=== PATIENT | female | born 2005 | race Two or more races ===

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

== ENCOUNTER 2025-02-22 21:04 | Emergency (ER) | payer MEDICAID, SELFPAY ==
[2025-02-22 21:07] VITALS: BMI 22.3
--- NOTE | 2025-02-22 21:08 | EKG_ITS ---
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 Requested By: ED Temporary Provider Order Number: [id number] Reading MD: ED Temporary Provider Measurements Intervals Webber Rate: 124 P: 59 VT: 142 QRS: 3 QRSD: 107 T: 1 QT: 336 QTc: 484 Interpretive Statements SINUS TACHYCARDIA S1-S2-S3 PATTERN, CONSISTENT WITH PULMONARY DISEASE, RVH, OR NORMAL VARIANT INCOMPLETE RIGHT BUNDLE BRANCH BLOCK [90+ ms QRS DURATION, TERMINAL R IN V1/V2, 40+ ms S IN I/aVL/V4/V5/V6] ST DEVIATION AND MODERATE T-WAVE ABNORMALITY, CONSIDER ANTEROLATERAL ISCHEMIA [-0.1+ mV T-WAVE IN V3-V6] No previous ECG available for comparison /store/S0/[id number].pdf
[2025-02-22 21:22] VITALS: BP 137/91; PULSE 127; RESP 20; TEMP 37.2; O2SAT 98
--- NOTE | 2025-02-22 21:29 | XR_ITS ---
EXAMINATION: PA lateral chest 2 views TECHNIQUE: Upright PA lateral chest 2 views Date and time: February 22, 2025, 2150 hours INDICATIONS: Chest pain and abdominal pain today. FINDINGS: Normal heart size No lobar pneumonia or pulmonary edema The osseous structures are intact IMPRESSION: No pneumonia or pulmonary edema
--- NOTE | 2025-02-22 21:32 | PD.EDRME ---
Rapid Medical Screening Exam RME Arrival date/time: 02/22/25 21:04 19-year-old female with a history of ANCA associated vasculitis micro type just recently received the Truxima injection today and reports with c/o chest and abd pain Chief Complaint: Chest Pain Time Seen by Provider: 02/22/25 21:18 Vital signs: Vital Signs Temperature 98.9 F 02/22/25 21:22 Pulse Rate 127 H 02/22/25 21:22 Respiratory Rate 20 02/22/25 21:22 Blood Pressure 137/91 H 02/22/25 21:22 Pulse Oximetry (%) 98 02/22/25 21:22 Oxygen Delivery Method Room Air 02/22/25 21:22 Exam: - Clinical Impression: -
[2025-02-22 21:56] LABS: Basophils # (Auto) 0.0 Thou/mm3 (0.0-0.2); Basophils % (Auto) 0 % (0-2.5); Eosinophils # (Auto) 0.0 Thou/mm3 (0.0-0.5); Eosinophils % (Auto) 0 % (0-10); Hematocrit 34.4 % (36.0-46.0); Hemoglobin 11.0 g/dL (12.0-16.0); Immature Granulocytes Auto 0.06 Thou/mm3 (0.00-0.00); Lymphocytes # (Auto) 0.5 Thou/mm3 (1.0-5.0); Lymphocytes % (Auto) 6 % (10-50); Mean Corpuscular HGB Conc 32.0 g/dl (31.0-37.0); Mean Corpuscular Hemoglobin 26.5 pg (25.0-35.0); Mean Corpuscular Volume 83 fL (80-100); Monocytes # (Auto) 0.1 Thou/mm3 (0.0-0.8); Monocytes % (Auto) 1 % (0-12); Neutrophils # (Auto) 6.9 Thou/mm3 (1.8-7.7); Neutrophils % (Auto) 92 % (37-80); Nucleated Red Blood Cell # 0.00 Thou/mm3 (0.00-0.00); Nucleated Red Blood Cell % 0 /100 WBC (0); Platelet Count 344 Thou/mm3 (140-440); RDW Standard Deviation 42.3 fL (36.4-46.3); Red Blood Count 4.15 Miln/mm3 (4.00-5.20); White Blood Count 7.5 Thou/mm3 (4.5-11.0)
[2025-02-22 22:10] LABS: HCG,Qualitative Serum Negative
[2025-02-22 22:23] LABS: Alanine Aminotransferase 8 U/L (10-49); Albumin, Serum 5.3 gm/dL (3.5-5.0); Albumin/Globulin Ratio 1.8 (1.2-2.2); Alkaline Phosphatase 100 U/L (46-116); Anion Gap 11 (7-16); Aspartate Amino Transferase 15 U/L (0-34); BUN/Creatinine Ratio 10 Ratio (12-20); Bilirubin,Total 0.3 mg/dL (0.3-1.2); Blood Urea Nitrogen 7 mg/dL (9-23); Calcium 9.6 mg/dL (8.3-10.6); Calcium (Corrected) 9.6 mg/dL (8.5-10.1); Carbon Dioxide 24.2 mMol/L (20.0-31.0); Chloride 105 mMol/L (98-107); Creatinine (Component) 0.7 mg/dL (0.6-1.3); Estimated Creatinine Clearance 111.6 mL/min (>60); Globulin 2.9 gm/dL (2.3-3.5); Glucose 201 mg/dL (74-106); Osmolality,Calculated 283 (275-295); Potassium 3.8 mMol/L (3.4-5.1); Sodium 140 mMol/L (136-145); Total Protein 8.2 gm/dL (5.7-8.2); Troponin I < 0.002 ng/mL (0.0-0.045); eGFR > 60 See Note
[2025-02-22 22:54] VITALS: BP 121/77; PULSE 107; RESP 19; TEMP 36.8; O2SAT 100
[2025-02-23] MEDS: SODIUM CHLORIDE 0.9% 1000 ML 1,000 ML 999 ML IV (00:21)
[2025-02-23 02:40] LABS: D-Dimer < 250 ng/mL (<600)
[2025-02-23] MEDS: MG HYD/AL HYD/SIME (Maalox Reg) SUSP 30 ML UDC PO (04:39)
[2025-02-23] MEDS: LIDOCAINE VISCOUS 2% 15 ML UDC PO (04:39)
[2025-02-23 04:42] VITALS: BP 126/84; PULSE 96; RESP 18; TEMP 36.6; O2SAT 99
--- NOTE | 2025-02-23 04:49 | PD.EDADULT ---
ED General RME/HPI General Chief complaint: Chest Pain Stated complaint: CHEST PAIN Time Seen by Provider: 02/22/25 21:18 Arrival date/time: 02/22/25 21:04 RME / HPI RME / HPI narrative: 02/22/25 21:04 19-year-old female with a history of ANCA associated vasculitis micro type just recently received the Truxima injection today and reports with c/o chest and abd pain Exam: - Impression: - Related Data Home Medications ?Medication ?Instructions ?Recorded ?Confirmed fluoxetine 10 mg capsule (Prozac) 10 mg PO QAM #0 caps 12/31/13 07/16/18 clonidine HCl 0.1 mg tablet 0.1 mg PO QPM #0 tabs 04/22/15 07/16/18 methylphenidate HCl 18 mg 27 mg PO QAM #0 tabs 04/22/15 07/16/18 tablet,extended release 24 hr (Concerta) Previous Rx's ?Medication ?Instructions ?Recorded Flagyl 250 mg tablet 250 mg PO TID #20 tabs 07/16/18 (metronidazole) peg 3350-electrolytes 236 240 ml PO Q10M #4,000 mL 07/06/22 gram-22.74 gram-6.74 gram-5.86 gram solution (Golytely) Allergies Allergy/AdvReac Type Severity Reaction Status Date / Time lactose Allergy Intermediate Abdominal Verified 02/22/25 21:05 Pain Course Orders Category Date Time Status EKG (ED ONLY) *Do not use* NOW Care 02/22/25 21:08 Completed EKG (ED Only) Stat Exams 02/22/25 21:08 Draft XR chest 2V Stat Exams 02/22/25 21:29 Completed CBC Stat Lab 02/22/25 21:34 Completed CMP [Comprehensive Metabolic Panel] Stat Lab 02/22/25 21:34 Completed D-Dimer Stat Lab 02/23/25 01:52 Completed HCG,Qualitative Serum Stat Lab 02/22/25 21:34 Completed Troponin I Stat Lab 02/22/25 21:34 Completed Lidocaine 2% Viscous [Xylocaine 2% Viscous] Med 02/23/25 03:30 Discontinued 15 ml PO X1 ONE Sodium Chloride 0.9% 1000 ml [Ns] 1,000 ml Med 02/23/25 00:09 Discontinued IV 999 mls/hr mg Hyd/Al Hyd/Cathy Susp [Maalox Susp] Med 02/23/25 03:29 Discontinued 30 ml PO X1 ONE Vital Signs Vital signs: Vital Signs Temperature 98.9 F 02/22/25 21:22 Pulse Rate 127 H 02/22/25 21:22 Respiratory Rate 20 02/22/25 21:22 Blood Pressure 137/91 H 02/22/25 21:22 Pulse Oximetry (%) 98 02/22/25 21:22 Oxygen Delivery Method Room Air 02/22/25 21:22 Discharge Plan Plan Patient Disposition: HOME (Self Care) Patient condition on transfer: Stable Prescriptions/Referrals Prescriptions/Med Rec: No Action fluoxetine [Prozac] 10 MG capsule 10 mg PO QAM Qty: 0 clonidine HCl 0.1 MG tablet 0.1 mg PO QPM Qty: 0 Patient Comments: 1 TO 2 TABS AT NIGHT methylphenidate HCl [Concerta] 18 MG/BOTTLE tablet extended release 24 hr 27 mg PO QAM Qty: 0 metronidazole [Flagyl] 250 mg tablet 250 mg PO TID Qty: 20 0RF peg 3350-electrolytes [Golytely] 236-22.74-6.74 -5.86 gram recon soln 240 ml PO Q10M Qty: 4000 0RF Rx Instructions: until fecal effluent is clear Referrals: Mckenna Gurrola FNP [Primary Care Provider] - In 1 week Problem List Clinical Impression: Atypical chest pain Patient/Caregiver Discharge Instructions Education Materials: ED Chest Pain, Uncertain Cause Additional Instructions: Your heart rate has improved since you have been in the emergency department. Please talk to your primary care physician and let them know that you are here however I think it safe you to go home. Your white count was normal and otherwise your electrolytes are reassuring. Your D-dimer is negative and I do not feel that you have a pulmonary embolism. Your cardiac enzymes are also negative. Please return to the emergency department for any worsening symptoms, or any other concerns. Print Language: Argentine Stand Alone Forms: Alicia Award Info., Patient Portal Info Letter MDM Medication Administration(s) Medication Administration History Discontinued Medications Al Hydrox/Mg Hydrox/Simethicone (Mg Hyd/Al Hyd/Cathy (Maalox Reg) Susp 30 Ml Udc) 30 ml PO X1 ONE Stop: 02/23/25 03:30 Last Admin: 02/23/25 04:39 Dose: 30 ml Documented By: EE Sodium Chloride (Ns) 1,000 mls @ 999 mls/hr IV .Q1H1M ONE Stop: 02/23/25 01:09 Last Infusion: 02/23/25 01:53 Dose: Infused Documented By: Admin: 02/23/25 00:21 Dose: 999 mls/hr Documented By: MICKEY Lidocaine HCl (Lidocaine Viscous 2% 15 Ml Udc) 15 ml PO X1 ONE Stop: 02/23/25 03:31 Last Admin: 02/23/25 04:39 Dose: 15 ml Documented By: JANETTE
== END 2025-02-23 05:08 | disposition home or self-care (01) ==
PROVIDERS: Physician Assistant; Emergency Provider Emergency Medicine; PCP Registered Nurse Community Health
DX: R07.89 Other chest pain (principal); R00.0 Tachycardia, unspecified; I45.10 Unspecified right bundle-branch block
CPT/HCPCS: 36415; 71046; 80053; 84484; 84703; 85025; 85379; 93005; 96360; 96361; 99284; J3490; J7030; A9270